=== PATIENT | female | born 1960 | race Caucasian/White ===

== ENCOUNTER → 2017-05-12 | Day surgery (SDC) | payer OTHER ==
--- NOTE | 2017-05-12 20:58 | OP ---
DATE OF OPERATION: 05/12/2017 PREOPERATIVE DIAGNOSIS: Abnormal right mammography. POSTOPERATIVE DIAGNOSIS: Abnormal right mammography. PROCEDURE: Right stereotactic needle biopsy with clip. SURGEON: Shanell Kitchen MD ANESTHESIA: Local. COMPLICATION: None. DISPOSITION: Stable at end of procedure. INDICATION FOR PROCEDURE: The patient presented with screening mammography that noted a new density in the posterior outer right breast on CC view, not as easy to see on the MLO view. This appeared in the lower breast on the tomosynthesis. Initial needle biopsy of this and the ultrasound of this area was negative. The procedure was discussed with her, including the need for a clip. PROCEDURE IN DETAIL: Patient was brought to [facility] and laid prone on the OR table. Using the caudal approach, the density in the posterior outer right breast was identified. A stereo pair was obtained. A target was chosen. There was a positive stroke margin. Using Betadine and 1% lidocaine, a 10-gauge Suros device was used to take several cores from this area. Cores were sent to Pathology in Formalin. A clip was applied in the area. Hemostasis assured with direct pressure. Steri-Strips were used to close the incision. She tolerated the procedure well and [facility]. SHANELL KITCHEN M.D. [id number] MTDD
--- NOTE | 2017-05-13 16:54 | PATH ---
Surgical Pathology Report Patient Name: RONNELL JIMENEZ [facility]. Rec. #: [id number] /Age/Gender: 1960 (Age: 56) / F Account: [id number] Location: [facility] Taken: 05/12/2017 Received: 05/12/2017 Reported: 05/13/2017 Physicians: Shanell Rodriguez M.D. Specimen(s) Received RIGHT BREAST MASS STEREOTACTIC BIOPSY Clinical History Nonpalpable lesion Mammographic findings: Suspicious Final Diagnosis BREAST, RIGHT, MASS, STEREOTACTIC BIOPSY: BENIGN BREAST TISSUE SHOWING FIBROADENOMA. Electronically Signed Lexus Chester M.D. Gross Description Received in formalin labeled "right breast mass," is a 2.4 x 2.3 x 0.3 cm aggregate of multiple shirley-yellow, irregular to cylindrical portions of fibroadipose tissue. The formalin is filtered and the specimen is entirely submitted in one cassette. Time to formalin fixation: 5 minutes Total formalin fixation time: Approximately 6 hours. /05/12/2017 saudi05/12/2017
== END | disposition home or self-care (01) ==
LOC: FMAMMOTONE 10:40
PROVIDERS: ATTEND Surgery
PROC: 0HBT3ZX Excision of Right Breast, Percutaneous Approach, Diagnostic (ICD-10-PCS; principal; 2017-05-12)
DX: D24.1 Benign neoplasm of right breast (principal); R92.8 Other abnormal and inconclusive findings on diagnostic imaging of breast
CPT/HCPCS: 19081; A4648